=== PATIENT | male | born 1970 | race Caucasian/White ===

== ENCOUNTER 2020-05-08 14:43 | Emergency (ER) | payer OTHER ==
[~2020-05-08] VITALS: Ht 175.3 cm; Wt 136.0 kg
[2020-05-08] MEDS ORDERED: ASA81BEC PO (15:08)
[2020-05-08] MEDS ORDERED: TENORMIN25 MG PO (15:09)
[2020-05-08] MEDS ORDERED: DESYREL150 MG PO (15:09)
[2020-05-08] MEDS ORDERED: VITAMIN D325 MC3 PO (15:09)
[2020-05-08] MEDS ORDERED: LIPITOR80 MG PO (15:09)
[2020-05-08] MEDS ORDERED: PRILOSEC OTC20 MG PO (15:09)
[2020-05-08 15:57] LABS: INFLUENZA A ANTIGEN Negative (Negative); INFLUENZA B ANTIGEN Negative (Negative)
[2020-05-08 16:22] VITALS: BP 158/70
== END 2020-05-08 16:23 | disposition home or self-care (01) ==
LOC: M.ERS 14:43
PROVIDERS: Nurse Practitioner Family
DX: B34.9 Viral infection, unspecified (principal); Z20.828 Contact with and (suspected) exposure to other viral communicable diseases; Z88.5 Allergy status to narcotic agent; Z88.8 Allergy status to other drugs, medicaments and biological substances